=== PATIENT | female | born 1990 ===

== ENCOUNTER 2024-09-17 12:32 | Outpatient (CLI) | payer OTHER | END 2024-09-17 12:35 | disposition home or self-care (01) | LOC: SONOGRAMA 12:32 | DX: R10.2 Pelvic and perineal pain (principal); N63.0 Unspecified lump in unspecified breast ==

== ENCOUNTER 2024-12-30 13:48 | Outpatient (CLI) | payer OTHER | END 2024-12-30 13:49 | disposition home or self-care (01) | LOC: PRENATAL 13:48 | PROVIDERS: ATTEND Obstetrics & Gynecology Maternal & Fetal Medicine | DX: O36.80X0 Pregnancy with inconclusive fetal viability, not applicable or unspecified (principal); Z36.82 Encounter for antenatal screening for nuchal translucency; Z14.8 Genetic carrier of other disease; O34.219 Maternal care for unspecified type scar from previous cesarean delivery; Z3A.13 13 weeks gestation of pregnancy ==